=== PATIENT | female | born 1995 | race Two or more races ===

== ENCOUNTER 2024-02-24 06:30 | Emergency (ER) | payer OTHER ==
[~2024-02-24] VITALS: Ht 160 cm; Wt 70.8 kg
[2024-02-24] MEDS ORDERED: ACETAMINOPHEN 500 MG GEL..CAP PO ONE ×2 (08:23→08:30)
[2024-02-24] MEDS ORDERED: 0.9 % SODIUM CHLORIDE 500 ML IV ONE ×2 (08:30)
[2024-02-24 09:30] LABS: HEMATOCRIT 35.4 % (36.0-45.00); HEMOGLOBIN 11.7 g/dL (12.0-15.00); MEAN CORPUSCULAR HEMOGLOBIN 26.2 pg (27.00-32.0); MEAN CORPUSCULAR HGB CONC 33.2 g/dl (32.0-36.0); PLATELET COUNT 348 K/uL (150-450); RED BLOOD COUNT 4.47 M/uL (4.00-6.00); RED CELL DISTRIBUTION WIDTH 14.3 % (11.5-14.5)
[2024-02-24 10:31] LABS: CALCIUM 9.2 mg/dL (8.5-10.1); CREATININE SERUM 0.64 mg/dL (0.55-1.02); GFR 111.31; POTASSIUM 3.68 mEq/L (3.5-5.1)
[2024-02-24] MEDS ORDERED: NASAL MIST126 ML NASAL (11:01)
[2024-02-24] MEDS ORDERED: AMOX250 PO (11:01)
== END 2024-02-24 11:33 | disposition home or self-care (01) ==
LOC: ER 06:32
PROVIDERS: General Practice
DX: B34.9 Viral infection, unspecified (principal); J32.9 Chronic sinusitis, unspecified; Z20.822 Contact with and (suspected) exposure to COVID-19; Z88.8 Allergy status to other drugs, medicaments and biological substances

== ENCOUNTER 2025-04-26 09:11 | Emergency (ER) | payer OTHER ==
[~2025-04-26] VITALS: Ht 160 cm; Wt 76.2 kg
[~2025-04-26 09:11] MED LIST: AMOX250 PO; NASAL MIST126 ML NASAL
[2025-04-26] MEDS ORDERED: 0.9 % SODIUM CHLORIDE 1,000 ML IV STA (09:38)
[2025-04-26] MEDS ORDERED: DICYCLOMINE HCL 10 MG/5 ML BLIST.PACK PO STA (09:39)
[2025-04-26] MEDS ORDERED: ONDANSETRON HCL 2 MG/ML VIAL IV STA (09:43)
[2025-04-26] MEDS ORDERED: DICYCLOMINE HCL 10 MG CAPSULE PO ONE (10:01)
[2025-04-26] MEDS ORDERED: ONDANSETRON HCL 2 MG/ML VIAL ONE (10:01)
[2025-04-26 11:09] LABS: BASO % 0.4 % (0.1-1.2); EOS # 0.04 (0.04-0.54); EOS % 0.9 % (0.7-7.0); LYMPH # 1.76 (1.18-3.74); LYMPH % 38.0 % (19.3-53.1); MEAN PLATELET VOLUME 9.00 fl (9.4-12.4); MONO # 0.30 (0.24-0.82); MONO % 6.5 % (4.7-12.5); NEUT # 2.50 (1.56-6.13); NEUT % 54.0 % (34.0-71.1); RED CELL DISTRIBUTION WIDTH 13.2 % (11.6-14.4)
[2025-04-26 11:37] LABS: ALT/SGPT 32.0 U/L (12-78); AST/SGOT 20.0 U/L (15-37); BILIRUBIN TOTAL 0.22 mg/dL (0.3-1.2); BUN CREA RATIO 13.0 (7.0-25.0); CREATININE SERUM 0.68 mg/dL (0.55-1.02); GFR 102.29; GLOBULINA 4.7 G/DL (2.4-3.5); GLUCOSE FASTING 90.0 mg/dL (65-100); OSMOLALITY SERUM 276.0 MOSM/KG (275-295)
[2025-04-26 12:43] LABS: URINE APPEARANCE Clear; URINE BILIRRUBIN Negative (NEGATIVE); URINE BLOOD Negative; URINE COLOR Yellow; URINE GLUCOSE Negative (NEGATIVE); URINE KETONE Negative (NEGATIVE); URINE LEUKOCYTE Negative; URINE NITRATE Negative; URINE PROTEIN Negative (NEGATIVE); URINE UROBILINOGEN 0.2 E.U./dl
[2025-04-26 12:47] LABS: URINE BACTERIA 627.6 uL (0.0-1933); URINE EPITHELIAL CELLS 16.9 uL (0.0-38.8); URINE RBC 8.2 uL (0.0-20.8); URINE WBC 9.9 uL (0.0-23.2)
[2025-04-26 13:00] LABS: URINE CAST 0.00 uL (0.0-1.40)
[2025-04-26] MEDS ORDERED: CIPROFLOXACIN IN 5 % DEXTROSE 400 MG/200 ML PIGGYBAG IV STA (13:20)
[2025-04-26] MEDS ORDERED: CIPROFLOXACIN IN 5 % DEXTROSE 400 MG/200 ML PIGGYBAG IV ONE (13:33)
[2025-04-26] MEDS ORDERED: PEPCID AC20 MG PO (15:39)
[2025-04-26] MEDS ORDERED: CIPRO500 MG PO (15:39)
== END 2025-04-26 16:27 | disposition home or self-care (01) ==
LOC: ER 09:11
PROVIDERS: Physician Assistant Medical
DX: K52.89 Other specified noninfective gastroenteritis and colitis (principal); Z88.8 Allergy status to other drugs, medicaments and biological substances